=== PATIENT | male | born 1985 | race Two or more races ===

== ENCOUNTER 2016-11-24 15:08 | Emergency (ER) | payer SELFPAY ==
[~2016-11-24] VITALS: Ht 170.2 cm; Wt 77.1 kg
[2016-11-24] MEDS ORDERED: NAPROXEN250 MG ORAL (15:27)
[2016-11-24] MEDS ORDERED: NORCO 5-325 TA1 EAC1 ORAL (15:27)
--- NOTE | 2016-11-24 15:45 | Emergency Room Report ---
History of Present Illness General Chief Complaint: Lower Extremity Injury Source: Patient Present Illness HPI 31 YO Male presents to the ED c/o 12/28 in severity left knee pain s/p fall this past . pt. states he had mechanical trip and fall , was evaluated at urgent care where x-rays were performed which showed no fractures but ligament injury. pt. states he was told MRI can not be scheduled for 2 weeks. pt. states he was d/c with Ava and Naprosyn. pt. states that he is continuing to have pain. pt. was given knee immobilizer. pt. states pain exacerbated with walking and bending the knee. pt. denies new trauma or fall. Denies numbness tingling or loss of sensation or gross motor movements of the extremities, incontinence of bowel or bladder. Denies CP, Palpitations, LOC, AMS , dizziness, Changes in Vision, Sensation, paresthesias, or a sudden severe headache. Allergies: Coded Allergies: No Known Allergies (Unverified , 11/24/16) Patient History Past Medical History: see triage record Past Surgical History: none Pertinent Family History: none Reviewed Nursing Documentation: PMH: Agreed, PSxH: Agreed Nursing Documentation-PMH Past Medical History: No Stated History Review of Systems All Other Systems: negative except mentioned in HPI Physical Exam Vital Signs Date Time Temp Pulse Resp B/P Pulse Ox O2 Delivery O2 Flow Rate FiO2 11/24/16 15:21 98.4 75 18 136/76 98 Room Air Sp02 EP Interpretation: reviewed, normal General Appearance: no apparent distress, alert, GCS 15, non-toxic Head: normocephalic, atraumatic Eyes: bilateral eye PERRL, bilateral eye normal inspection ENT: hearing grossly normal, normal pharynx, no angioedema, normal voice Neck: full range of motion, supple/symm/no masses Respiratory: lungs clear, normal breath sounds, speaking full sentences Cardiovascular #1: regular rate, rhythm, no edema Musculoskeletal: back normal, gait/station normal, normal range of motion, other - Pt is NVI to extremity, tender - TTP to the anterior medial aspect of the left knee, mild swelling, no bruises, no erythema, no obvious deformity, no increased laxity on stress testing. Neurologic: alert, oriented x3, responsive, motor strength/tone normal, sensory intact, speech normal Psychiatric: judgement/insight normal, memory normal, mood/affect normal Skin: normal color, no rash, warm/dry, well hydrated Medical Decision Making PA Attestation is my supervising Physician whom patient management has been discussed with. Diagnostic Impression: Primary Impression: Left knee injury Qualified Codes: S89.92XA - Unspecified injury of left lower leg, initial encounter Additional Impression: Knee MCL sprain Qualified Codes: S83.412A - Sprain of medial collateral ligament of left knee , initial encounter ER Course 31 YO Male presents to the ED c/o 12/28 in severity left knee pain s/p fall this past . pt. states he had mechanical trip and fall , was evaluated at urgent care where x-rays were performed which showed no fractures but ligament injury. pt. states he was told MRI can not be scheduled for 2 weeks. pt. states he was d/c with Ava and Naprosyn. pt. states that he is continuing to have pain. pt. was given knee immobilizer. pt. states pain exacerbated with walking and bending the knee. pt. denies new trauma or fall. Denies numbness tingling or loss of sensation or gross motor movements of the extremities, incontinence of bowel or bladder. Denies CP, Palpitations, LOC, AMS , dizziness, Changes in Vision, Sensation, paresthesias, or a sudden severe headache. Ddx considered but are not limited to Fracture, dislocation, contusion, Sprain/ Strain/Spasm. Vital signs: are WNL, pt. is afebrile H&PE are most consistent with knee soft tissue injury. no appreciable laxity on exam. and hx of negative xrays. no evidence of infection, only mild swelling noted. ORDERS: - none required at this time. x-rays have already been performed, no new injury to warrant additional imaging at this time. MRI is the diagnostic imaging of choice which is performed as outpatient. ED INTERVENTIONS: - Pair of crutches is ordered for the pt. - PT Education: D/w pt. that he needs to be resting the leg, and that walking on it while in an immobilizer is not recommended. d/w pt. the importance of using crutches, and adhering to treatment plan. d/w pt that MRI is performed as outpatient and that he needs to follow up with his PCP or data processing specialist. d/w pt. that anti-inflammatory is mainstay, and opiates are only to be used short term and he was already prescribed some for initial injury. d /w pt. that walking on his leg could be the cause of continued pain. DISCHARGE: At this time pt. is stable for d/c to home. Will provide printed patient care instructions, and any necessary prescriptions. Care plan and follow up instructions have been discussed with the patient prior to discharge. Last Vital Signs Date Time Temp Pulse Resp B/P Pulse Ox O2 Delivery O2 Flow Rate FiO2 11/24/16 15:21 98.4 75 18 136/76 98 Room Air Disposition: HOME, SELF-CARE Condition: Stable Scripts Ibuprofen* (MOTRIN*) 600 Mg Tablet 600 MG ORAL THREE TIMES A DAY, #30 TAB 0 Refills Prov: Lenka Marshall 11/24/16 Patient Instructions: Combined Knee Ligament Sprain Additional Instructions: Take medications as directed. Follow up with a Primary Care Provider in 3-5 days, even if your symptoms have resolved. --Please review list of primary care clinics, if you do not already have a primary care provider Return sooner to ED if new symptoms occur, or current symptoms become worse. - Please note that this Emergency Department Report was dictated using [employer] software, occasionally this can lead to erroneous entry secondary to interpretation by the dictation equipment. Lenka Marshall Nov 24, 2016 15:45
[2016-11-24] MEDS ORDERED: IBUPROFEN600 MG ORAL (15:48)
[2016-11-24 16:08] VITALS: BP 136/76
== END 2016-11-24 16:08 | disposition home or self-care (01) ==
LOC: EMR 15:45
DX: S83.412A Sprain of medial collateral ligament of left knee, initial encounter (principal); W01.0XXA Fall on same level from slipping, tripping and stumbling without subsequent striking against object, initial encounter; Y93.9 Activity, unspecified; Y92.9 Unspecified place or not applicable
CPT/HCPCS: 99283